=== PATIENT | female | born 1995 | race Caucasian/White ===

== ENCOUNTER 2017-01-20 19:44 | Emergency (ER) | payer OTHER ==
[2017-01-20 23:49] VITALS: BP 110/88
== END 2017-01-20 23:50 | disposition home or self-care (01) ==
LOC: ED 19:44
DX: B34.9 Viral infection, unspecified (principal); J45.909 Unspecified asthma, uncomplicated; Z88.0 Allergy status to penicillin
CPT/HCPCS: J2930; J7613

== ENCOUNTER 2019-07-26 19:15 | Emergency (ER) | payer OTHER ==
[~2019-07-26] VITALS: Ht 172.7 cm; Wt 107.0 kg
[2019-07-26 19:44] VITALS: Ht 172.7 cm; Wt 107.0 kg
[2019-07-26 21:10] VITALS: BP 138/92
== END 2019-07-26 21:10 | disposition home or self-care (01) ==
LOC: ED 19:15
DX: J20.9 Acute bronchitis, unspecified (principal); Z88.0 Allergy status to penicillin
CPT/HCPCS: J7512

== ENCOUNTER 2019-09-18 15:56 | Emergency (ER) | payer OTHER ==
[~2019-09-18] VITALS: Ht 172.7 cm; Wt 103.4 kg
[2019-09-18 16:10] VITALS: Ht 172.7 cm; Wt 103.4 kg
[2019-09-18 17:31] VITALS: BP 145/75
== END 2019-09-18 17:31 | disposition home or self-care (01) ==
LOC: ED 15:56
DX: L02.213 Cutaneous abscess of chest wall (principal); Z88.0 Allergy status to penicillin
CPT/HCPCS: J2001